=== PATIENT | female | born 1995 | race Caucasian/White ===

== ENCOUNTER 2018-09-21 08:34 | Emergency (ER) | payer MEDICAID, OTHER ==
[~2018-09-21] VITALS: Ht 167.6 cm; Wt 56.7 kg
--- NOTE | 2018-09-21 09:07 | NUR ---
Patient walked in to ER c/o RIGHT side abdominal pain x1 week. Patient states this morning the pain became intense (11/27) so she drove to the hospital. To room 4B.
[2018-09-21 09:16] LABS: *BILIRUBIN,URIN NEGATIVE (NEGATIVE); *BLOOD, URINE TRACE (NEGATIVE); *CLARITY,URINE CLOUDY (CLEAR); *COLOR,URINE YELLOW (YELLOW); *KETONES,URINE NEGATIVE (NEGATIVE); *UROBILINOGEN,URINE 0.2 E.U./dl (NORMAL); LEUKOCYTE ESTERASE ,URINE NEGATIVE (NEGATIVE); NITRITE, URINE NEGATIVE (NEGATIVE); PH,URINE 7.5 (5.0-8.0); UGLUCOSE NEGATIVE (NEGATIVE)
[2018-09-21 09:24] LABS: *URINE HCG, QUAL POSITIVE (NEGATIVE)
[2018-09-21 09:29] LABS: BACTERIA,URINE MANY /HPF (NONE SEEN); RBC,URINE 0-3 /HPF (0-3); SQUAMOUS EPITHELIAL CELL,UR FEW /HPF (NONE SEEN); WBC,URINE 0-3 /HPF (0-3)
[2018-09-21] MEDS ORDERED: HYDROCODONE/APAP 5-325MG TABLET PO ONE (09:45)
[2018-09-21] MEDS ORDERED: IV NORMAL SALINE 1000 ML BAG IV ONE (09:45)
[2018-09-21] MEDS ORDERED: HYDROCODONE/APAP 5-325MG TABLET ONE (09:54)
[2018-09-21 10:18] LABS: BASOPHILS # (AUTO) 0.1 K/uL (0.0-8.0); BASOPHILS % (AUTO) 0.7 % (0.0-2.0); EOSINOPHILS # (AUTO) 0.2 K/uL (0.0-0.7); HEMATOCRIT 39.8 % (31.2-41.9); HEMOGLOBIN 13.9 g/dL (10.9-14.3); LYMPHOCYTES # (AUTO) 2.3 K/uL (20.0-40.0); LYMPHOCYTES % (AUTO) 27.3 % (20.5-51.5); MEAN CORPUSCULAR HGB CONC 35 g/dL (32.3-35.6); MONOCYTES # (AUTO) 0.6 K/uL (2.0-10.0); MONOCYTES % (AUTO) 6.7 % (0.0-11.0); NEUTROPHILS # (AUTO) 5.3 K/uL (1.8-8.9); NEUTROPHILS % (AUTO) 63.3 % (38.5-71.5); PLATELET COUNT (AUTO) 270 K/uL (179-408); RED BLOOD CELL COUNT(AUTO) 4.79 MIL/uL (3.63-4.92); WHITE BLOOD COUNT (AUTO) 8.4 K/uL (3.8-11.8)
[2018-09-21] MEDS ORDERED: HYDROMORPHONE 1 MG/1 ML DISP.SYRIN ONE ×3 (10:25→11:50)
[2018-09-21] MEDS ORDERED: ONDANSETRON 4 MG/2 ML VIAL IV ONE ×2 (10:30→12:30)
[2018-09-21] MEDS ORDERED: HYDROMORPHONE 1 MG/1 ML DISP.SYRIN IV ONE ×4 (10:30→12:30)
[2018-09-21] MEDS ORDERED: ONDANSETRON 4 MG/2 ML VIAL ONE ×3 (10:33→13:50)
[2018-09-21 10:55] LABS: ALANINE AMINOTRANSFERASE 11 U/L (14-59); ALKALINE PHOSPHATASE 65 U/L (50-136); ASPARTATE AMINOTRANSFERASE 9 U/L (15-37); BILIRUBIN,DIRECT 0.2 mg/dL (0.0-0.2); BILIRUBIN,TOTAL 1.1 mg/dL (0.2-1.0); CARBON DIOXIDE 24 mmol/L (21-32); CHLORIDE 108 mmol/L (98-107); CREATININE 0.6 mg/dL (0.6-1.3); GLUCOSE 87 mg/dL (74-106); POTASSIUM 3.8 mmol/L (3.5-5.1); TOTAL PROTEIN, SERUM 7.3 g/dL (6.4-8.2); UREA NITROGEN, BLOOD 7 mg/dL (7-18)
--- NOTE | 2018-09-21 11:43 | NUR ---
spoke to Dr. Patel, immigration patrol inspector to discuss the case. Pending repeat quant beta and official read of [place]. Called [facility] and requested a STAT read.
[2018-09-21] MEDS ORDERED: HYDROMORPHONE 2 MG/1 ML DISP.SYRIN ONE (12:27)
--- NOTE | 2018-09-21 12:44 | NUR ---
Dr. Patel (SUPERVISOR [employer]) at bedside for consultation.
[2018-09-21] MEDS ORDERED: KETOROLAC TROMETHAMINE 30 MG INJ IVP ONE (13:30)
[2018-09-21] MEDS ORDERED: KETOROLAC TROMETHAMINE 30 MG INJ ONE (13:38)
[2018-09-21] MEDS ORDERED: ONDANSETRON IV *ER 4 MG/2 ML VIAL IV ONE (14:00)
--- NOTE | 2018-09-21 15:38 | NUR ---
Patient Tranfers to outside Facility Physician: Dr. Weir Location: [facility]
== END 2018-09-21 15:41 | disposition short-term general hospital (02) ==
LOC: ER 08:34
DX: R10.31 Right lower quadrant pain (principal); R19.7 Diarrhea, unspecified; R30.0 Dysuria; Z76.5 Malingerer [conscious simulation]; Z88.5 Allergy status to narcotic agent
CPT/HCPCS: 36415; 74176; 76856; 80048; 80076; 81000; 81001; 84702 ×2; 84703; 85025; 85730; 86850; 86900; 86901; 87086; 96361; 96374; 96375; 96376; 99285; J1170 ×4; J1885; J2405 ×3; A4663; J7030

== ENCOUNTER 2018-10-15 20:25 | Inpatient (IN) | payer MEDICAID ==
[~2018-10-15] VITALS: Ht 167.6 cm; Wt 57.2 kg
--- NOTE | 2018-10-15 20:44 | NUR ---
PT RECEIVED FR HOME C/O FALLING AND LOSING CONSCIOUSNESS FOR 10MINS, UNWITNESSED FALL BUT FOUND OUT BY ROOMMATE AND ENDORSED SEIZURE ON SITE. PT C/O HEADACHE, CHEST DISCOMFORT AND MALAISE WITH ABD PAIN. PT IS UNABLE TO RECALL /IDENTIFY NAME WHICH IS TYPICAL OF POST ICTAL STAGE. DENIES CHANGES IN B/B FUNCTION DENIES PPMDHX
[2018-10-15] MEDS ORDERED: IV NORMAL SALINE 1000 ML BAG IV ONE (21:15)
[2018-10-15 21:20] LABS: BASOPHILS # (AUTO) 0.1 K/uL (0.0-8.0); BASOPHILS % (AUTO) 0.6 % (0.0-2.0); EOSINOPHILS % (AUTO) 0.5 % (0.0-7.0); HEMATOCRIT 39.8 % (31.2-41.9); HEMOGLOBIN 13.9 g/dL (10.9-14.3); LYMPHOCYTES # (AUTO) 1.9 K/uL (20.0-40.0); LYMPHOCYTES % (AUTO) 18.9 % (20.5-51.5); MEAN CORPUSCULAR HEMOGLOBIN 28.8 uug (24.7-32.8); MEAN CORPUSCULAR HGB CONC 35 g/dL (32.3-35.6); MEAN CORPUSCULAR VOLUME 82.6 fL (75.5-95.3); MONOCYTES # (AUTO) 0.7 K/uL (2.0-10.0); MONOCYTES % (AUTO) 7.3 % (0.0-11.0); NEUTROPHILS # (AUTO) 7.4 K/uL (1.8-8.9); NEUTROPHILS % (AUTO) 72.7 % (38.5-71.5); PLATELET COUNT (AUTO) 293 K/uL (179-408); RED BLOOD CELL COUNT(AUTO) 4.82 MIL/uL (3.63-4.92); WHITE BLOOD COUNT (AUTO) 10.2 K/uL (3.8-11.8)
[2018-10-15] MEDS ORDERED: LORAZEPAM 2 MG/1 ML VIAL IV ONE (21:30)
--- NOTE | 2018-10-15 21:30 | NUR ---
BROUGHT DOWN TO CT VIA GURNEY ACCOMPANIED BY TECH. PT AMADEO, KEPT SAFE, PADDED SDERAILS UPX2
[2018-10-15 21:34] LABS: ALANINE AMINOTRANSFERASE 10 U/L (14-59); ALKALINE PHOSPHATASE 66 U/L (50-136); ASPARTATE AMINOTRANSFERASE 11 U/L (15-37); BILIRUBIN,DIRECT 0.4 mg/dL (0.0-0.2); BILIRUBIN,TOTAL 2.9 mg/dL (0.2-1.0); CARBON DIOXIDE 25 mmol/L (21-32); CHLORIDE 103 mmol/L (98-107); CREATININE 0.7 mg/dL (0.6-1.3); GLUCOSE 97 mg/dL (74-106); POTASSIUM 3.8 mmol/L (3.5-5.1); TOTAL PROTEIN, SERUM 7.4 g/dL (6.4-8.2); UREA NITROGEN, BLOOD 5 mg/dL (7-18)
[2018-10-15 21:35] LABS: ACETAMINOPHEN < 2.0 ug/mL (10-30)
[2018-10-15] MEDS ORDERED: LORAZEPAM 2 MG/1 ML VIAL ONE ×2 (21:35→22:03)
--- NOTE | 2018-10-15 21:45 | NUR ---
PT BACK FROM CT GRAND MAL SEIZURE OBSERVEDWHICH LASTED FOR LESS THAN 1MINUTE SEIZURE PREC DONE. PT REORIENTED ATTEMPTED TO SECURE IVF AND FAILED 3TIMES. WILL TRY AGAIN ABLE TO PROVIDE URINE
[2018-10-15 21:59] LABS: THYROID STIMULATING HORMONE 2.309 mIU/mL (0.358-3.740)
[2018-10-15] MEDS ORDERED: LORAZEPAM 2 MG/1 ML VIAL IM ONE (22:00)
[2018-10-15 22:01] LABS: ETHANOL < 3 MG/DL (0-0)
[2018-10-15 23:13] LABS: *BILIRUBIN,URIN NEGATIVE (NEGATIVE); *COLOR,URINE YELLOW (YELLOW); *KETONES,URINE 4+ (NEGATIVE); *UROBILINOGEN,URINE 0.2 E.U./dl (NORMAL); LEUKOCYTE ESTERASE ,URINE NEGATIVE (NEGATIVE); NITRITE, URINE POSITIVE (NEGATIVE); UGLUCOSE NEGATIVE (NEGATIVE)
[2018-10-15 23:24] LABS: *BLOOD, URINE TRACE (NEGATIVE); *CLARITY,URINE HAZY (CLEAR)
[2018-10-15 23:28] LABS: BACTERIA,URINE MANY /HPF (NONE SEEN); MUCUS,URINE MANY /LPF (0-FEW); RBC,URINE 0-3 /HPF (0-3); SQUAMOUS EPITHELIAL CELL,UR MANY /HPF (NONE SEEN); WBC,URINE 0-3 /HPF (0-3)
[2018-10-15 23:29] LABS: CALCIUM OXALATE CRYSTALS,UR FEW /HPF (NONE SEEN)
[2018-10-15 23:33] LABS: *AMPHETAMINE, URINE NEGATIVE (NEGATIVE); *BARBITURATE, URINE NEGATIVE (NEGATIVE); *CANNABINOID, URINE NEGATIVE (NEGATIVE); *COCCAINE, URINE NEGATIVE (NEGATIVE); *OPIATE, URINE NEGATIVE (NEGATIVE); *PHENCYCLIDINE SCREEN,URINE NEGATIVE (NEGATIVE)
--- NOTE | 2018-10-15 23:45 | NUR ---
PT HAD ANOTHER SEIZURE EPISODE. LASTING FOR LESS 45SECS. PT REASSURED, TURNED TO HER SIDE AND KEPT SAFE. PADDING ON SIDERAILS.UP X2 MD NOTIFIED. MEDS ORDERED , ABLE TO TOLERATE
[2018-10-16] MEDS ORDERED: MAGNESIUM HYDROXIDE 30 ML LIQUID UDC PO PRN (00:45)
[2018-10-16] MEDS ORDERED: ACETAMINOPHEN 325 MG TABLET PO PRN (00:45)
[2018-10-16] MEDS ORDERED: Z GUARD REMEDY PASTE 57 GM TUBE TOP PRN (00:45)
[2018-10-16] MEDS ORDERED: HYDROMORPHONE 1 MG/1 ML DISP.SYRIN IV ONE (01:15)
[2018-10-16] MEDS ORDERED: ONDANSETRON 4 MG/2 ML VIAL IV ONE (01:15)
[2018-10-16] MEDS ORDERED: CEFTRIAXONE 1 G in IV DEXTROSE 5% 50 ML IV ONE (01:15)
--- NOTE | 2018-10-16 01:30 | NUR ---
HAND OFF AND SBAR DONE SUSIE GREEN AT ROOM 319, TELE TRANSPORT WITH ALL BELONGINGS VIA [place], PT SALINE LOCK INTACT ON R HAND. BELONGINGS LIST COMPLETED AND SIGNED KEPT WARM SAFE AND COMFORTABLE Addendum: 10/16/18 at [address] TO THE TELE FLOOR, PT STATES "WILL THEY GIVE ME THE SAME MEDICATION WHAT YOU GUYS GAVE ME?" PT REORIENTED TO GOALS OF ADMISSION, PT FREE OF SEIZURE DURING TRANSPORT PT NAD, ABLE TO SPEAK CLEARLY AND WITH COMPLETE SENTENCES. KEPT SAFE, SIDERAILSX2 UP, PADDED.
[2018-10-16] MEDS ORDERED: CEFTRIAXONE 1 G VIAL ONE (01:31)
[2018-10-16] MEDS ORDERED: ONDANSETRON 4 MG/2 ML VIAL ONE (01:32)
[2018-10-16] MEDS ORDERED: HYDROMORPHONE 2 MG/1 ML DISP.SYRIN ONE (01:33)
[2018-10-16 02:20] VITALS: BP 112/79
--- NOTE | 2018-10-16 02:30 | NUR ---
PT WAS BROUGHT IN TO FLOOR VIA GURNEY, ADMITTED TO TELE UNDER MARIBELL JOHNSON. INITIATE ADMISSION ASSESSMENTS.
[2018-10-16] MEDS ORDERED: LORAZEPAM 2 MG/1 ML VIAL IV ONE (03:30)
--- NOTE | 2018-10-16 03:30 | NUR ---
PT WAS OBSERVED HAVING INTERMITTENT SEIZURES UP TO 4X SINCE CAME UP FROM ER. V/S CHECKED, 137/73 99% R/A, BLOOD SUGAR CHECKED 84. ON SR ON TELE. DR. ALEXANDER MADE AWARE, ORDERED TO GIVE ATIVAN 2MG IV. WILL MONITOR.
[2018-10-16] MEDS ORDERED: LORAZEPAM 2 MG/1 ML VIAL ONE (03:32)
--- NOTE | 2018-10-16 03:35 | NUR ---
PT SEEMS TO FORGET WHEN ASKED AFTER OBSERVED HAVING SEIZURES, OTHERWISE PT SEEMS ALERT, ANSWERED QUESTIONS APPROPRIATELY. PT WAS ALSO OBSERVED CALLING NURSING STATION STATING SHE "IS HAVING SEIZURES".
[2018-10-16 05:57] VITALS: BP 112/62
--- NOTE | 2018-10-16 06:28 | NUR ---
PT SLEEPING AT THIS TIME, SR ON TELE HR 64.
[2018-10-16 06:52] LABS: CREATININE 0.7 mg/dL (0.6-1.3); MAGNESIUM 1.9 mg/dL (1.8-2.4); PHOSPHOROUS 4.4 mg/dL (2.5-4.9); POTASSIUM 2.9 mmol/L (3.5-5.1)
[2018-10-16 06:54] LABS: BASOPHILS # (AUTO) 0.1 K/uL (0.0-8.0); BASOPHILS % (AUTO) 0.6 % (0.0-2.0); EOSINOPHILS # (AUTO) 0.2 K/uL (0.0-0.7); HEMOGLOBIN 12.2 g/dL (10.9-14.3); LYMPHOCYTES # (AUTO) 2.7 K/uL (20.0-40.0); LYMPHOCYTES % (AUTO) 29.3 % (20.5-51.5); MEAN CORPUSCULAR HEMOGLOBIN 29.2 uug (24.7-32.8); MEAN CORPUSCULAR HGB CONC 36 g/dL (32.3-35.6); MEAN CORPUSCULAR VOLUME 81.2 fL (75.5-95.3); MONOCYTES # (AUTO) 0.9 K/uL (2.0-10.0); NEUTROPHILS # (AUTO) 5.4 K/uL (1.8-8.9); NEUTROPHILS % (AUTO) 58.1 % (38.5-71.5); PLATELET COUNT (AUTO) 245 K/uL (179-408); RED BLOOD CELL COUNT(AUTO) 4.18 MIL/uL (3.63-4.92); WHITE BLOOD COUNT (AUTO) 9.2 K/uL (3.8-11.8)
--- NOTE | 2018-10-16 07:15 | NUR ---
Patient in bed, Asleep. No signs of Respiratory distress noted. No SOB. No complain of pain or Discomfort at this time. Will continue to monitor.
[2018-10-16] MEDS: LORAZEPAM 2 MG/1 ML VIAL IV PRN (09:24)
[2018-10-16] MEDS: ONDANSETRON 4 MG/2 ML VIAL IV PRN ×2 (09:56→21:02)
[2018-10-16] MEDS ORDERED: POTASSIUM CHLORIDE 20 MEQ TAB.PRT.SR PO ONE (10:15)
[2018-10-16 11:19] VITALS: BP 103/56
[2018-10-16] MEDS: HYDROCODONE/APAP 5-325MG TABLET PO PRN ×2 (12:16→18:23)
[2018-10-16] MEDS ORDERED: KETOROLAC TROMETHAMINE 15 MG INJ IVP ONE (13:45)
--- NOTE | 2018-10-16 15:00 | NUR ---
Seen by CIARAN Al with Order to Give PRN ativan if Seizure episode is more than 5 minutes.
--- NOTE | 2018-10-16 15:03 | NUR ---
patient in Bed, awake and verbally responsive. No signs of respiratory distress noted. Pain Medication given as ordered. patient calls station saying shes having seizure, Ativan given as ordered, Zofran 4mg given for nausea with help after 30 minutes. [place] 5/325 given for pain as ordered. Dr. Walden made aware of Patient condition.
--- NOTE | 2018-10-16 15:10 | NUR ---
Seen by CANAL DRIVER Champ with New Order of EEG awake/asleep and toradol x 1 dose for headache.
[2018-10-16 15:25] VITALS: BP 110/65
--- NOTE | 2018-10-16 15:34 | NUR ---
Received a call from Patient's Brother (Tangela) saying patient has been going to Hospital to be admitted and needs attention. Patient saying and calling Nurse station that shes having a seizure, patient Vital signs WNL, saturation is 100%. Skin warm and dry. Afebrile. All due medications given as ordered. Will continue to monitor.
--- NOTE | 2018-10-16 18:37 | NUR ---
Patient in Bed, awake and verbally responsive. No signs of respiratory distress noted. No SOB. Pain medication [place] 5/325 given as ordered for pain. Patient remains NPO, for aspiration Precaution. patient saying 'i will pass out' and 'im having seizure' On and off this shift, Dr. Walden and Mikaela PLAYROOM ATTENDANT is aware. Vital signs within Normal Limits, saturating at 100% at Room Air. Skin is warm to touch, afebrile. per Mikaela PLAYROOM ATTENDANT may give PRN ativan if Seizure last for 5 minutes, All needs attended and met. Will Endorse to Oncoming Nurse.
--- NOTE | 2018-10-16 20:00 | NUR ---
RECEIVED PT AWAKE, ALERT & ORIENTED X3, DENIES PAIN THIS TIME. HEP LOCK INTACT & PATENT ON R HAND. ON RM AIR W/ O2 SAT OF 98%. C-SCOPE SR. NOT IN ANY DISTRESS.
[2018-10-16 20:22] VITALS: BP 107/71
--- NOTE | 2018-10-16 21:02 | NUR ---
C/O NAUSEA, MEDICATED W/ ZOFRAN 4MG IVP.
--- NOTE | 2018-10-16 23:00 | NUR ---
PT. CALLED THAT SHE HAS SEIZURES, I STAYED WITH PT, SHAKING HER SHOULDER NOTED FOR 1 MIN THEN SHE WAS WIDE AWAKE, ASKING IS SHE OK.
[2018-10-17 00:15] VITALS: BP 110/62
[2018-10-17 04:05] VITALS: BP 110/69
[2018-10-17] MEDS: HYDROCODONE/APAP 5-325MG TABLET PO PRN ×2 (04:29→23:27)
[2018-10-17] MEDS: ONDANSETRON 4 MG/2 ML VIAL IV PRN ×2 (05:51→16:30)
--- NOTE | 2018-10-17 06:15 | NUR ---
CALLED DR ALEXANDER RE: HR-[id number] ST WHEN PT WAS UP TO BATHROOM, THEN THE HR DOWN TO 55 WHEN SHE WAS IN BED. MADE DR ALEXANDER AWARE OF PT. BEING NPO W/O IVF, STATED TO LET AM SHIFT TO F/U WITH DR. MENDEZ WHATS THE THE PLAN.
--- NOTE | 2018-10-17 08:05 | NUR ---
At 0800, pt noted to be seizing for almost 5 minutes. IV Ativan given per MD order. Dr. Lopez also here and made aware. VSS wnl. Pt a&ox4. Will continue to monitor.
[2018-10-17] MEDS: LORAZEPAM 2 MG/1 ML VIAL IV PRN ×2 (08:08→14:52)
[2018-10-17] MEDS ORDERED: LEVETIRACETAM IV 1,000 MG in IV DEXTROSE 5% 100 ML IV ONE (09:00)
--- NOTE | 2018-10-17 09:03 | NUR ---
Seen and examined by Dr. Lopez with orders. Had another "seizure episode" for 2 minutes. Keppra 100 mg IV started.
[2018-10-17 10:58] LABS: BASOPHILS # (AUTO) 0.1 K/uL (0.0-8.0); BASOPHILS % (AUTO) 0.7 % (0.0-2.0); EOSINOPHILS # (AUTO) 0.1 K/uL (0.0-0.7); EOSINOPHILS % (AUTO) 0.9 % (0.0-7.0); LYMPHOCYTES # (AUTO) 1.7 K/uL (20.0-40.0); LYMPHOCYTES % (AUTO) 20.3 % (20.5-51.5); MEAN CORPUSCULAR HEMOGLOBIN 29.3 uug (24.7-32.8); MEAN CORPUSCULAR HGB CONC 36 g/dL (32.3-35.6); MEAN CORPUSCULAR VOLUME 82.6 fL (75.5-95.3); MONOCYTES # (AUTO) 0.6 K/uL (2.0-10.0); MONOCYTES % (AUTO) 7.6 % (0.0-11.0); NEUTROPHILS # (AUTO) 5.8 K/uL (1.8-8.9); NEUTROPHILS % (AUTO) 70.5 % (38.5-71.5); PLATELET COUNT (AUTO) 246 K/uL (179-408); RED BLOOD CELL COUNT(AUTO) 4.56 MIL/uL (3.63-4.92); WHITE BLOOD COUNT (AUTO) 8.2 K/uL (3.8-11.8)
[2018-10-17 11:02] LABS: CREATININE 0.6 mg/dL (0.6-1.3); POTASSIUM 3.7 mmol/L (3.5-5.1)
[2018-10-17 11:07] LABS: HEMATOCRIT 37.7 % (31.2-41.9); HEMOGLOBIN 13.4 g/dL (10.9-14.3)
[2018-10-17 11:12] VITALS: BP 124/77
--- NOTE | 2018-10-17 13:30 | NUR ---
Dr. Hu seen patient for psych consult.
--- NOTE | 2018-10-17 14:52 | NUR ---
EEG at bedside but tech unable to complete study because of "seizure" Ativan IV given as ordered. Noted per tech that in the middle of the seizure activity, the phone rang and the patient answered the phone.
[2018-10-17 15:38] VITALS: BP 105/57
--- NOTE | 2018-10-17 18:20 | NUR ---
pt moving both legs and feet at the same time, with eyes closed,lasted about one minute but able to answer questions and follow command at this period of time, states having pain pointing to her head, chest and abdomen, vss, and right after "seizure episode" ceased, said "norco is not helping her pain". Primary nurse informed.
[2018-10-17] MEDS ORDERED: HYDROMORPHONE 1 MG/1 ML DISP.SYRIN IV ONE (20:08)
[2018-10-17 20:11] VITALS: BP 105/70
[2018-10-17] MEDS ORDERED: LORAZEPAM 2 MG/1 ML VIAL IV PRN (20:15)
[2018-10-17] MEDS ORDERED: LEVETIRACETAM IV 500 MG in IV DEXTROSE 5% 100 ML IV SCH (21:00)
[2018-10-18] MEDS: HYDROCODONE/APAP 5-325MG TABLET PO PRN (03:29)
[2018-10-18] MEDS: ONDANSETRON 4 MG/2 ML VIAL IV PRN (03:37)
[2018-10-18 05:12] VITALS: BP 100/62
[2018-10-18 05:49] LABS: BASOPHILS # (AUTO) 0.1 K/uL (0.0-8.0); BASOPHILS % (AUTO) 0.7 % (0.0-2.0); EOSINOPHILS # (AUTO) 0.2 K/uL (0.0-0.7); EOSINOPHILS % (AUTO) 2.5 % (0.0-7.0); HEMATOCRIT 38.8 % (31.2-41.9); HEMOGLOBIN 13.9 g/dL (10.9-14.3); LYMPHOCYTES # (AUTO) 2.1 K/uL (20.0-40.0); LYMPHOCYTES % (AUTO) 21.2 % (20.5-51.5); MEAN CORPUSCULAR HGB CONC 36 g/dL (32.3-35.6); MEAN CORPUSCULAR VOLUME 81.1 fL (75.5-95.3); MONOCYTES # (AUTO) 0.9 K/uL (2.0-10.0); MONOCYTES % (AUTO) 9.2 % (0.0-11.0); NEUTROPHILS # (AUTO) 6.6 K/uL (1.8-8.9); NEUTROPHILS % (AUTO) 66.4 % (38.5-71.5); PLATELET COUNT (AUTO) 253 K/uL (179-408); RED BLOOD CELL COUNT(AUTO) 4.79 MIL/uL (3.63-4.92); WHITE BLOOD COUNT (AUTO) 9.9 K/uL (3.8-11.8)
[2018-10-18 06:00] LABS: BILIRUBIN,TOTAL 3.5 mg/dL (0.2-1.0); CREATININE 0.6 mg/dL (0.6-1.3); MAGNESIUM 1.9 mg/dL (1.8-2.4); PHOSPHOROUS 4.2 mg/dL (2.5-4.9); POTASSIUM 3.4 mmol/L (3.5-5.1)
--- NOTE | 2018-10-18 07:10 | NUR ---
Upon arrival patient quietly sleeping with no signs of distress; patient with stable vital signs and noted with no seizure activity.
--- NOTE | 2018-10-18 07:40 | NUR ---
Patient was having seizure like movement upon assessment ;patient asked if she was experiencing pain and moaned yes ; patient seemed to be having pseudo seizure as movements were not consistent with tonic clonic seizure.
--- NOTE | 2018-10-18 08:12 | NUR ---
Per Patient she stated that she got up to go to bathroom and when in bathroom she felt faint and pulled emergency light ; patient found laying on bathroom floor patient vital signs taken and stable ; patient was able to stand up and walk to bed ; patient stated that didn't not understand what was going ; on patient described head pain, abdominal pain , and chest pain. Patient educated that ct of head and abdomen were negative and that her symptoms were evaluated by physician yet incongruent with any particular diagnosis.
--- NOTE | 2018-10-18 09:15 | NUR ---
Neurologist contacted if Keppra IV should be continued . discontinued medication. due to normal EGD results. Orders received and carried out.
--- NOTE | 2018-10-18 09:50 | NUR ---
Call received from close friend of patient and of patient mother she stated that she was calling on behave of the mother since patient had txted mother in the middle of the night expressing that she was close to ; mother was very concerned per family friend and requested she call to see if patient was stable. Family friend expressed she and mother of patient were very concerned for patient mental health as she has been to many different hospitals such as [facility], [facility], [facility] in the past couple of months ; she stated patient had just been discharged from [facility] last Saturday and came directly to the emergency room here at [facility]; they expressed that patient has been placed on two separate 5150 hold the past month due to false accusations of multiple vague physical symptoms that can not be diagnosed; they expressed patient has many mental disorders and would like help as they do not know how help patient anymore. I notified family I would express concerns to attending Doctor.
--- NOTE | 2018-10-18 10:15 | NUR ---
Attending Notified of patient history that was relayed from family and expressed that patient ct scan of head and abdomen were normal along with EGD and that there was not much more he could offer patient and he would Discharge patient and to patient instructed to follow up with primary care physician and psychiatrist.
--- NOTE | 2018-10-18 10:30 | NUR ---
Patient notified of discharge and continued to express new symptoms such as crushing chest pain ; case management notified patient that discharge was final per MD patient packed belongings ; patient expressed she tried to call mother and family friend and that they would not answer and she had no other form of transportation. Patient requested for me to call mother and mother contacted and stated she would not pickler helper patient .
[2018-10-18 11:39] VITALS: BP 118/83
--- NOTE | 2018-10-18 12:30 | NUR ---
Patient given discharge instructions to follow up concerns with primary care physician and her psychiatrist along with therapist. Patient educated on Mental health options. Patient escorted down to lobby to await her transportation.
[2018-10-18] MEDS ORDERED: POTASSIUM CHLORIDE 20 MEQ TAB.PRT.SR PO ONE (14:30)
== END 2018-10-18 12:30 | disposition home or self-care (01) | DRG 756 ==
LOC: ER 20:25 → EDBD 20:25 → TELE3 10-16 01:51 → MERGE 10-16 01:51 → MEDSURG3 10-17 20:57
PROVIDERS: ADMIT Family Medicine; ATTEND Internal Medicine
DX: F44.5 Conversion disorder with seizures or convulsions (principal); E87.6 Hypokalemia; R41.82 Altered mental status, unspecified; Z76.5 Malingerer [conscious simulation]; F32.9 Major depressive disorder, single episode, unspecified; R10.9 Unspecified abdominal pain; Z75.8 Other problems related to medical facilities and other health care
CPT/HCPCS: 36415; 70030-TC; 70450; 71045; 80307; 83550; 83735; 84100; 84146; 84443; 85025; 85730; 87086; 95819; A4663; G0378; G0480; G0480-TC; J0696; J1170; J1885; J1953; J2060; J2405; J7060

== ENCOUNTER 2018-11-19 09:23 | Inpatient (IN) | payer MEDICAID, OTHER ==
[~2018-11-19] VITALS: Ht 167.6 cm; Wt 54.4 kg
[2018-11-19] MEDS ORDERED: TRAZ-182 PO (09:39)
[2018-11-19] MEDS ORDERED: FLUO-120 PO (09:44)
[2018-11-19] MEDS ORDERED: HYDR-3972 PO (09:44)
[2018-11-19] MEDS ORDERED: LORA2TAB95 PO (09:44)
[2018-11-19] MEDS ORDERED: ONDA4TAB5 PO (09:44)
[2018-11-19] MEDS ORDERED: DEXA4TAB PO (09:44)
[2018-11-19] MEDS ORDERED: [UNRECOGNIZED DRUG - OTHER] PO (09:44)
[2018-11-19] MEDS ORDERED: CARB200T8 PO (09:44)
[2018-11-19 10:08] LABS: CREATININE 0.8 mg/dL (0.6-1.3); POTASSIUM 3.4 mmol/L (3.5-5.1)
[2018-11-19 10:09] LABS: BASOPHILS # (AUTO) 0.1 K/uL (0.0-8.0); BASOPHILS % (AUTO) 0.6 % (0.0-2.0); EOSINOPHILS # (AUTO) 0.1 K/uL (0.0-0.7); EOSINOPHILS % (AUTO) 1.4 % (0.0-7.0); HEMATOCRIT 39.7 % (31.2-41.9); HEMOGLOBIN 13.9 g/dL (10.9-14.3); LYMPHOCYTES # (AUTO) 2.1 K/uL (20.0-40.0); LYMPHOCYTES % (AUTO) 20.9 % (20.5-51.5); MEAN CORPUSCULAR HEMOGLOBIN 29.9 uug (24.7-32.8); MEAN CORPUSCULAR HGB CONC 35 g/dL (32.3-35.6); MEAN CORPUSCULAR VOLUME 85.1 fL (75.5-95.3); MONOCYTES # (AUTO) 0.7 K/uL (2.0-10.0); MONOCYTES % (AUTO) 6.9 % (0.0-11.0); NEUTROPHILS % (AUTO) 70.2 % (38.5-71.5); PLATELET COUNT (AUTO) 294 K/uL (179-408); RED BLOOD CELL COUNT(AUTO) 4.66 MIL/uL (3.63-4.92); WHITE BLOOD COUNT (AUTO) 9.9 K/uL (3.8-11.8)
[2018-11-19 10:14] LABS: BILIRUBIN,DIRECT 0.3 mg/dL (0.0-0.2); BILIRUBIN,TOTAL 2.6 mg/dL (0.2-1.0); TOTAL PROTEIN, SERUM 7.3 g/dL (6.4-8.2)
[2018-11-19] MEDS ORDERED: IV NS 1000 ML 1,000 ML IV ONE (10:15)
[2018-11-19] MEDS ORDERED: FENTANYL CITRATE 100 MCG/2 ML AMPUL IV ONE ×2 (10:15→12:30)
[2018-11-19] MEDS ORDERED: ONDANSETRON 4 MG/2 ML VIAL IV ONE (10:15)
[2018-11-19] MEDS ORDERED: ONDANSETRON 4 MG/2 ML VIAL ONE ×2 (10:22→15:26)
[2018-11-19] MEDS ORDERED: FENTANYL CITRATE 100 MCG/2 ML AMPUL ONE (10:22)
[2018-11-19] MEDS ORDERED: KETOROLAC TROMETHAMINE 30 MG INJ ONE (10:27)
[2018-11-19] MEDS ORDERED: KETOROLAC TROMETHAMINE 30 MG INJ IVP ONE (10:30)
[2018-11-19 10:31] LABS: *BILIRUBIN,URIN NEGATIVE (NEGATIVE); *BLOOD, URINE NEGATIVE (NEGATIVE); *CLARITY,URINE CLEAR (CLEAR); *COLOR,URINE YELLOW (YELLOW); *KETONES,URINE NEGATIVE (NEGATIVE); *UROBILINOGEN,URINE 0.2 E.U./dl (NORMAL); LEUKOCYTE ESTERASE ,URINE NEGATIVE (NEGATIVE); NITRITE, URINE NEGATIVE (NEGATIVE); PH,URINE 6.5 (5.0-8.0); UGLUCOSE NEGATIVE (NEGATIVE)
[2018-11-19 10:33] LABS: *URINE HCG, QUAL NEGATIVE (NEGATIVE)
[2018-11-19] MEDS ORDERED: KETAMINE HCL 500 MG/10 ML INJ ONE (10:55)
[2018-11-19] MEDS ORDERED: KETAMINE HCL 500 MG/10 ML INJ IV ONE (11:00)
[2018-11-19] MEDS ORDERED: SWABABLE VALVE TRANSFER SET EA MC ONE (14:00)
[2018-11-19] MEDS ORDERED: IOHEXOL 300MG/ML 100 ML INFUS..BTL ONE (14:00)
[2018-11-19] MEDS ORDERED: IV NORMAL SALINE 250 ML IV ONE (14:00)
[2018-11-19] MEDS ORDERED: TEMAZEPAM 15 MG CAPSULE PO PRN (14:15)
[2018-11-19] MEDS ORDERED: ACETAMINOPHEN 325 MG TABLET PO PRN (14:15)
[2018-11-19] MEDS: ONDANSETRON 4 MG/2 ML VIAL IV PRN ×2 (15:28→19:51)
[2018-11-19 16:30] VITALS: BP 128/94
[2018-11-19 18:39] VITALS: BP 128/94
[2018-11-19] MEDS: HYDROMORPHONE 1 MG/1 ML DISP.SYRIN IV PRN ×2 (18:47→22:55)
[2018-11-19] MEDS: PANTOPRAZOLE SODIUM 40 MG VIAL IV SCH (19:51)
[2018-11-19] MEDS: IV NS 1000 ML 1,000 ML IV PRN (19:52)
[2018-11-19 20:03] VITALS: BP 117/66
[2018-11-19] MEDS: POTASSIUM CHLORIDE 50 ML IV SCH ×3 (20:47→22:55)
[2018-11-20] MEDS: POTASSIUM CHLORIDE 50 ML IV SCH ×2 (01:58→03:05)
[2018-11-20] MEDS: ONDANSETRON 4 MG/2 ML VIAL IV PRN ×2 (03:29→10:08)
[2018-11-20] MEDS: HYDROMORPHONE 1 MG/1 ML DISP.SYRIN IV PRN ×2 (03:29→08:13)
[2018-11-20] MEDS: IV NS 1000 ML 1,000 ML IV PRN ×2 (04:33→04:36)
[2018-11-20 05:37] VITALS: BP 110/61
[2018-11-20 07:38] LABS: BASOPHILS # (AUTO) 0.1 K/uL (0.0-8.0); EOSINOPHILS # (AUTO) 0.3 K/uL (0.0-0.7); EOSINOPHILS % (AUTO) 4.5 % (0.0-7.0); HEMATOCRIT 36.7 % (31.2-41.9); LYMPHOCYTES # (AUTO) 2.3 K/uL (20.0-40.0); LYMPHOCYTES % (AUTO) 33.2 % (20.5-51.5); MEAN CORPUSCULAR HGB CONC 35 g/dL (32.3-35.6); MEAN CORPUSCULAR VOLUME 84.9 fL (75.5-95.3); MONOCYTES # (AUTO) 0.6 K/uL (2.0-10.0); MONOCYTES % (AUTO) 9.3 % (0.0-11.0); NEUTROPHILS # (AUTO) 3.6 K/uL (1.8-8.9); PLATELET COUNT (AUTO) 249 K/uL (179-408); RED BLOOD CELL COUNT(AUTO) 4.32 MIL/uL (3.63-4.92); WHITE BLOOD COUNT (AUTO) 6.9 K/uL (3.8-11.8)
[2018-11-20 07:55] LABS: CREATININE 0.7 mg/dL (0.6-1.3); PHOSPHOROUS 3.6 mg/dL (2.5-4.9); POTASSIUM 3.5 mmol/L (3.5-5.1)
[2018-11-20] MEDS: PANTOPRAZOLE SODIUM 40 MG VIAL IV SCH (08:13)
[2018-11-20] MEDS ORDERED: FLUOXETINE HCL 20 MG CAPSULE PO SCH (09:15)
[2018-11-20] MEDS ORDERED: CARBAMAZEPINE 200 MG TABLET PO SCH (09:15)
[2018-11-20] MEDS ORDERED: DEXAMETHASONE 4 MG TABLET PO SCH (09:15)
[2018-11-20] MEDS ORDERED: DEXAMETHASONE 1 MG TABLET PO SCH (10:30)
[2018-11-20] MEDS ORDERED: TRAZODONE 50 MG TABLET PO SCH (21:00)
== END 2018-11-20 11:40 | disposition home or self-care (01) | DRG 282 ==
LOC: ER 09:23 → MERGE 16:59 → EDBD 16:59 → MEDSURG3 16:59
PROVIDERS: ADMIT Nurse Practitioner Acute Care; ATTEND Nurse Practitioner Acute Care
DX: K85.80 Other acute pancreatitis without necrosis or infection (principal); E87.6 Hypokalemia; Z85.43 Personal history of malignant neoplasm of ovary; Z92.21 Personal history of antineoplastic chemotherapy; F41.9 Anxiety disorder, unspecified; F32.9 Major depressive disorder, single episode, unspecified; F12.90 Cannabis use, unspecified, uncomplicated; Z82.49 Family history of ischemic heart disease and other diseases of the circulatory system; N89.8 Other specified noninflammatory disorders of vagina
CPT/HCPCS: 36415; 76856; 83690; 83735; 84100; 84703; 85025; A4663; C9113; G0378; J1170; J1885; J2405; J3010; J3480; J3490; J7030; J7050; J8540; Q9967

== ENCOUNTER 2020-03-02 20:44 | Emergency (ER) | payer OTHER ==
[~2020-03-02] VITALS: Ht 167.6 cm; Wt 72.6 kg
[~2020-03-02 20:44] MED LIST: CARB200T8 PO; DEXA4TAB PO; FLUO20CA42 PO; HYDR-3972 PO; LORA2TAB95 PO; ONDA4TAB5 PO; TRAZ-182 PO; [UNRECOGNIZED DRUG - OTHER] PO
[2020-03-02] MEDS ORDERED: FENTANYL CITRATE 100 MCG/2 ML AMPUL IM ONE (21:15)
--- NOTE | 2020-03-02 21:39 | NUR ---
PT IKE,STAED HER REGISTERED NAME WAS NOT ALIZA AND THAT WHEN HER BOYFRIEND PROVIDED HER WITH HER ID SHE WOULD COME BACK. PT ANBULATED W/O DIFF/TOOK ALL BELONGINGS.
== END 2020-03-02 21:42 | disposition left against medical advice (07) ==
LOC: ER 20:50
DX: O20.9 Hemorrhage in early pregnancy, unspecified (principal); Z3A.14 14 weeks gestation of pregnancy; R10.9 Unspecified abdominal pain; Z86.73 Personal history of transient ischemic attack (TIA), and cerebral infarction without residual deficits; Z88.5 Allergy status to narcotic agent
CPT/HCPCS: A4663